=== PATIENT | male | born 1945 | race Caucasian/White ===

== ENCOUNTER 2020-03-18 12:43 | Outpatient (CLI) | payer MEDICARE, OTHER, SELFPAY | END 2020-03-18 12:44 | disposition home or self-care (01) | PROVIDERS: Family Provider Internal Medicine; PCP Family Medicine Sports Medicine; Visit Provider Family Medicine Sports Medicine | DX: H90.6 Mixed conductive and sensorineural hearing loss, bilateral (principal) | CPT/HCPCS: 92557; 92567 ==